=== PATIENT | male | born 1950 | race African-American/Black ===

== ENCOUNTER 2019-12-03 10:18 | Emergency (ER) | payer OTHER, MEDICAID ==
[~2019-12-03] VITALS: Ht 182.9 cm; Wt 72.6 kg
[2019-12-03] MEDS ORDERED: LIDOCAINE HCL/PF 1% 10 MG/ML 5ML VIAL IJ ONE (11:15)
[2019-12-03 11:21] VITALS: BP 128/89
== END 2019-12-03 12:02 | disposition home or self-care (01) ==
LOC: ER 11:56
DX: S60.012A Contusion of left thumb without damage to nail, initial encounter (principal); X58.XXXA Exposure to other specified factors, initial encounter; Y93.89 Activity, other specified; Y92.89 Other specified places as the place of occurrence of the external cause; I10 Essential (primary) hypertension
CPT/HCPCS: 10060; 99283; J3490

== ENCOUNTER 2023-03-24 18:51 | Emergency (ER) | payer MEDICARE, MEDICAID ==
[~2023-03-24] VITALS: Ht 182.9 cm; Wt 77.0 kg
[2023-03-24 19:29] VITALS: BP 127/81
[2023-03-24] MEDS ORDERED: TETANUS, DIPHTHERIA, PERTUSSIS VAC/PF 0.5ML (>10YR OLD) IM ONE (20:45)
[2023-03-24] MEDS ORDERED: CIPR750T4 MT (21:06)
[2023-03-24] MEDS ORDERED: CLIN-194 MT (21:06)
== END 2023-03-24 21:20 | disposition home or self-care (01) ==
LOC: ER 18:51
DX: S91.332A Puncture wound without foreign body, left foot, initial encounter (principal); I10 Essential (primary) hypertension; W22.8XXA Striking against or struck by other objects, initial encounter; Y93.89 Activity, other specified; Y92.89 Other specified places as the place of occurrence of the external cause; Y99.8 Other external cause status
CPT/HCPCS: 73630; 90471; 90715; 99283